=== PATIENT | female | born 1995 | race African-American/Black ===

== ENCOUNTER 2022-02-17 03:23 | Emergency (ER) | payer SELFPAY ==
[2022-02-17] MEDS ORDERED: Acetaminophen 500 MG TAB ONE (04:11)
== END 2022-02-17 05:26 | disposition home or self-care (01) ==
LOC: CSHERS 03:23
DX: U07.1 COVID-19 (principal)
CPT/HCPCS: 71045; 87804; 93005; U0003; U0005